=== PATIENT | female | born 1955 | race Caucasian/White ===

== ENCOUNTER → 2016-05-15 | Outpatient (CLI) | payer OTHER ==
[~2016-05-15] MED LIST: ALEV220T26 PO; AMIT25TA PO; BUPR1TAB52 PO; CAPS0.1C2 TOP; CODE30TA3 PO; CYCL10TA PO; EMLA2.5C TOP; GABA300C3 PO; IBUP80TA PO; LEVO75TA4 PO; LIPI10TA PO; MECL-68 PO; MIRT30TA3 PO; MOBI7.5T10 PO; VITA100072 PO; WELLTAB40 PO; flexeril
--- NOTE | 2016-05-25 01:17 | ECWPNPC ---
PATIENT NAME: LYNETTE NICHOLS : 1955 GENDER: FEMALE VISIT DATE: 05/15/2016 DISCHARGE DATE: 05/15/16 1603 VISIT LOCKED DATE TIME: PHYSICIAN: HERBERT SAMUEL RESOURCE: HERBERT SAMUEL REASON FOR APPOINTMENT 1. BACK HISTORY OF PRESENT ILLNESS HISTORY OF PRESENT ILLNESS: HERE FOR F/U AND MANAGEMENT OF CHRONIC LBP AND NECK PAIN.REPORTS TWO FALL INJURIES SINCE LAST VISIT IN FEBRUARY.REPORTS INCREASE IN PAIN AFTER FALL MAINLY IN LOW BACK. RATING PAIN VAS 9/10.DESCRIBES PAIN CONSTANT BURNING AND SHARP.DENIES RADICULAR SYMPTOMS. PAIN THE PATIENT DESCRIBES THE PAIN... FALL RISK SCREENING: SCREENING :NO FALLS IN THE PAST YEAR CURRENT MEDICATIONS TAKING VITAMIN B12 100 MCG TABLET SUBLINGUALLY DAILY TAKING LIPITOR 10 MG TABLET 1 TABLET ORALLY ONCE A DAY TAKING CAPSAICIN 0.1 % CREAM 1 APPLICATION TO AFFECTED AREA NEEDED EXTERNALLY FOUR TIMES A DAY NEEDED TAKING CYCLOBENZAPRINE HCL 10 MG TABLET 1 TABLET ORALLY THREE TIMES A DAY NEEDED TAKING LEVOTHYROXINE SODIUM 75 MCG TABLET 1 TABLET ORALLY ONCE A DAY TAKING GABAPENTIN 600 MG TABLET 1 CAPSULE ORALLY DAILY AT BEDTIME TAKING VITAMIN D (ERGOCALCIFEROL) 5000 CAPSULE 1 CAPSULE ORALLY ONCE A DAY TAKING CETIRIZINE HCL 10 MG TABLET 1 TABLET ORALLY ONCE A DAY TAKING MONTELUKAST SODIUM 10 MG TABLET 1 TABLET IN THE EVENING ORALLY ONCE A DAY TAKING PAXIL 20 MG TABLET 1 TABLET IN THE MORNING ORALLY ONCE A DAY TAKING WELLBUTRIN SR 150 MG TABLET EXTENDED RELEASE 12 HOUR 1 TABLET ORALLY ONCE A DAY TAKING ZOLPIDEM TARTRATE 10 MG TABLET 1 TABLET AT BEDTIME NEEDED ORALLY ONCE A DAY TAKING DIVALPROEX SODIUM 250 MG TABLET DELAYED RELEASE ORALLY DAILY AT BEDTIME TAKING IPRATROPIUM BROMIDE 0.02 % SOLUTION INHALATION THREE TIMES A DAY TAKING RANITIDINE HCL 150 MG CAPSULE 2 CAPSULE AT BEDTIME ORALLY TWICE A DAY A DAY NOT-TAKING AMITRIPTYLINE HCL 50 MG TABLET 1 TABLET ORALLY ONCE A DAY AT BEDTIME NOT-TAKING MELOXICAM 7.5 MG TABLET 1 TABLET ORALLY ONCE DAILY, NOTES: NOT TAKING VERY OFTEN NOT-TAKING VALIUM 5 MG TABLET 1 ORALLY 1 TAB 1 HR PRE PROCEDURE MEDICATION LIST REVIEWED AND RECONCILED WITH THE PATIENT PAST MEDICAL HISTORY DIZZINESS HEARING LOSS ALLERGIES MORPHINE SULFATE: HIVES: ALLERGY SPIDER BITES: RASH: ALLERGY SOCIAL HISTORY GENERAL: TOBACCO USE ARE YOU A:CURRENT SMOKER LEARNING BARRIERS / SPECIAL NEEDS ORIENTED TO PLAN OF CARE: PATIENT, PAIN MANAGEMENT PATIENT, ORIENTED TO PLAN OF CARE: PATIENT, PAIN MANAGEMENT PATIENT. NEW PATIENT PAIN DIARY TODAY'S VISITNOTES FROM 0-10, WHAT LEVEL IS YOUR PAIN TODAY?0 PAIN CLINIC PFS, CLERGY, PUBLIC HEALTH REFERRALS PFS REFERRAL NEEDED?NO CLERGY REFERRAL NEEDED?NO PUBLIC HEALTH REFERRAL NEEDED?NO WAS THE PROVIDER NOTIFIED OF ANY PERTINENT INFO?NO PFS REFERRAL NEEDED?NO CLERGY REFERRAL NEEDED?NO PUBLIC HEALTH REFERRAL NEEDED?NO WAS THE PROVIDER NOTIFIED OF ANY PERTINENT INFO?NO REVIEW OF SYSTEMS CONSTITUTIONAL: ANY CHANGE IN YOUR MEDICAL CONDITION? NO . CHILLS NO . FEVER NO . INFECTION: DO YOU HAVE NEW INFECTIONS? NO . DO YOU HAVE HISTORY OF MRSA? NO . MUSCULOSKELETAL: ANY NEW PATTERNS OF PAIN OR NUMBNESS? NO . GASTROENTEROLOGY: ANY NEW CHANGE IN BOWEL CONTROL? NO . GENITOURINARY: ANY NEW CHANGE IN BLADDER CONTROL? NO . IS THERE A CHANCE YOU COULD BE ? NO . HEMATOLOGY/LYMPH: DO YOU TAKE ANY BLOOD THINNERS? (FOR EXAMPLE- COUMADIN, PLAVIX, AGGRENOX, PLATEL, PRADAXA, OR XARELTO) NO . WHEN WAS YOUR LAST DOSE? DATE: TIME: . NEUROLOGY: HAVE YOU FALLEN IN THE PAST 6 MONTHS? YES TWICE SINCE WE LAST SAW . ANY NEW EXTREMITY NUMBNESS OR WEAKNESS? NO . CARDIOLOGY: DO YOU HAVE A PACEMAKER OR DEFIBRILLATOR? NO . RESPIRATORY: HAVE YOU BEEN SICK IN THE PAST WEEK? NO . FEVER NO . FLU LIKE SYMPTOMS? NO . COUGH NO . INTEGUMENTARY: DO YOU HAVE ANY RASHES OR OPEN SORES? NO . ALLERGIC/IMMUNO: ARE YOU ALLERGIC TO SHELLFISH OR IV DYE? NO . ANY NEW ALLERGIES? NO . PSYCHIATRIC: DO YOU HAVE THOUGHTS OF HURTING YOURSELF OR SOMEONE ELSE? NO . ARE YOU ABUSED, NEGLECTED, OR IN AN UNSAFE ENVIRONMENT? NO . ENDOCRINOLOGY: ARE YOU DIABETIC? NO . OTHER: DO YOU NEED ANY PRESCRIPTIONS? NO . IF YES, PLEASE LIST: ____ . ANY NEW PROBLEMS WITH YOUR MEDICATIONS? NO . WHEN DID YOU LAST EAT? ____ . WHEN DID YOU LAST DRINK? ____ . WHAT DID YOU LAST DRINK? ____ . NAME OF PERSON DRIVING YOU HOME? ____ . DO YOU HAVE ANY OTHER QUESTIONS OR CONCERNS NO . REVIEWED BY: PROVIDER: HERBERT COHEN . VITAL SIGNS WT 184.4 LBS, HT 65 IN, BMI 30.68 INDEX, BP 121/71 MM HG, HR 93 /MIN, RR 16 /MIN, TEMP 97.9 F, OXYGEN SAT % 98, NA INITIALS TL 1506, REVIEWED BY: KG. EXAMINATION GENERAL EXAMINATION: LUNGS:LUNG SOUNDS ARE CLEAR. HEART:HEART RATE REGULAR. MUSCULOSKELETAL:*, MUSCLE STRENGTH TESTING 5/5 BILATERAL, PALPATION: POSITIVE FOR PAIN OVER L/S SPINE. POSITIVE FOR PAIN OVER L/S PARSPINALS. ASSESSMENTS SACROILIITIS, NOT ELSEWHERE CLASSIFIED - M46.1 (PRIMARY) LOW BACK PAIN - M54.5 MYOFASCIAL PAIN - M79.1 TREATMENT SACROILIITIS, NOT ELSEWHERE CLASSIFIED REFERRAL TO:PHYSICAL THERAPY INNOVATIVEPHYSICAL THERAPIST REASON:LUMBAR MYALGIA S/P FALL INJURY PROCEDURE CODES FA211 ESTABILISHED PATIENT [facility] CHARGE FOLLOW UP 4 WEEKS (REASON: PT 2XWK X 8WK-MYOFASCIAL RELEASE) ELECTRONICALLY SIGNED BY NOEL DRAKE ON 05/23/2016 AT 10:20 AM EST DISCLAIMER : THIS IS A VISIT SUMMARY EXTRACTED FROM THE [employer] CHART. IT IS NOT A COPY OF THE [employer] PROGRESS NOTE. JAYNA
== END ==
LOC: M PAIN 15:00
PROVIDERS: ATTEND Nurse Practitioner Family
DX: Z09 Encounter for follow-up examination after completed treatment for conditions other than malignant neoplasm (principal); G89.29 Other chronic pain; M46.1 Sacroiliitis, not elsewhere classified; M54.5 Low back pain; M79.1 Myalgia; H90.5 Unspecified sensorineural hearing loss; Z86.69 Personal history of other diseases of the nervous system and sense organs; F17.200 Nicotine dependence, unspecified, uncomplicated; Z88.5 Allergy status to narcotic agent; Z91.038 Other insect allergy status; Z79.899 Other long term (current) drug therapy

== ENCOUNTER → 2016-06-30 | Outpatient (CLI) | payer OTHER ==
--- NOTE | 2016-06-30 11:19 | REP ---
CHEST: Two views. COMPARISON: 01/19/2015 There is no evidence of acute infiltrate. No pleural effusion is seen. The heart is normal in size. The mediastinal silhouette is unremarkable. The visualized osseous structures are intact. There are mild degenerative changes of the spine. IMPRESSION: No acute pulmonary disease. Signed by Jamal Brody MD 06/30/2016 08:30 P
--- NOTE | 2016-06-30 20:17 | ECGEPIP ---
Stationary ECG Study [facility] Test Date: 2016-06-30 Pat Name: LYNETTE NICHOLS Department: Room: - Gender: F [employer]r: : 1955 Requested By: Thea Kaur Order Number: [id number] Reading MD: Lawson Levin Measurements Intervals [place]yer Rate: 87 P: 55 MN: 205 QRS: 38 QRSD: 94 T: 52 QT: 383 QTc: 462 Interpretive Statements SINUS RHYTHM Borderline QTc Compared to prior tracing of 01-19-15 Electronically Signed On 06-30-2016 20:17:43 EST by Lawson Levin
== END ==
LOC: M EKG 08:30
PROVIDERS: ATTEND Nurse Practitioner Adult Health
DX: Z01.812 Encounter for preprocedural laboratory examination (principal); Z82.49 Family history of ischemic heart disease and other diseases of the circulatory system; J44.9 Chronic obstructive pulmonary disease, unspecified; D16.4 Benign neoplasm of bones of skull and face

== ENCOUNTER → 2017-03-02 | Outpatient (CLI) | payer MEDICARE, OTHER ==
[~2017-03-02] MED LIST changes: +GABA-282 PO; -GABA300C3 PO; +MOBI4TAB PO; -MOBI7.5T10 PO
--- NOTE | 2017-03-20 02:32 | ECWPNPC ---
PATIENT NAME: LYNETTE NICHOLS : 1955 GENDER: FEMALE VISIT DATE: 03/02/2017 DISCHARGE DATE: 03/02/17 1521 VISIT LOCKED DATE TIME: PHYSICIAN: HERBERT SAMUEL RESOURCE: HERBERT SAMUEL REASON FOR APPOINTMENT 1. BACK, HASNT BEEN HERE SINCE 04/2016 HISTORY OF PRESENT ILLNESS HISTORY OF PRESENT ILLNESS: HERE FOR F/U,LAST VISIT APRIL 2016.STATES PAIN ACROSS LOW BACK AND HIPS HAS RETURNED.RATING PAIN VAS 9/10.HAVING DIFFICULTY WALKING DUE TO PAIN.DENIES RECENT FEVER,ILLNESS OR WEIGHT LOSS.DENIES BOWEL OR BLADDER INCONTINENCE.PAIN IS AGGREVATED BY INCREASED ACTIVITY AND RELIEVED AT REST. PAIN THE PATIENT DESCRIBES THE PAIN... FALL RISK SCREENING: SCREENING :NO FALLS IN THE PAST YEAR CURRENT MEDICATIONS TAKING VITAMIN B12 100 MCG TABLET SUBLINGUALLY DAILY TAKING LIPITOR 10 MG TABLET 1 TABLET ORALLY ONCE A DAY TAKING CAPSAICIN 0.1 % CREAM 1 APPLICATION TO AFFECTED AREA NEEDED EXTERNALLY FOUR TIMES A DAY NEEDED TAKING CYCLOBENZAPRINE HCL 10 MG TABLET 1 TABLET ORALLY THREE TIMES A DAY NEEDED TAKING LEVOTHYROXINE SODIUM 75 MCG TABLET 1 TABLET ORALLY ONCE A DAY TAKING GABAPENTIN 600 MG TABLET 1 CAPSULE ORALLY DAILY AT BEDTIME TAKING VITAMIN D (ERGOCALCIFEROL) 5000 CAPSULE 1 CAPSULE ORALLY ONCE A DAY TAKING CETIRIZINE HCL 10 MG TABLET 1 TABLET ORALLY ONCE A DAY TAKING MONTELUKAST SODIUM 10 MG TABLET 1 TABLET IN THE EVENING ORALLY ONCE A DAY TAKING PAXIL 20 MG TABLET 1 TABLET IN THE MORNING ORALLY ONCE A DAY TAKING WELLBUTRIN SR 150 MG TABLET EXTENDED RELEASE 12 HOUR 1 TABLET ORALLY ONCE A DAY TAKING ZOLPIDEM TARTRATE 10 MG TABLET 1 TABLET AT BEDTIME NEEDED ORALLY ONCE A DAY TAKING DIVALPROEX SODIUM 500 MG TABLET DELAYED RELEASE ORALLY BID TAKING IPRATROPIUM BROMIDE 0.02 % SOLUTION INHALATION THREE TIMES A DAY TAKING RANITIDINE HCL 150 MG CAPSULE 2 CAPSULE AT BEDTIME ORALLY TWICE A DAY A DAY TAKING AMITRIPTYLINE HCL 50 MG TABLET 1 TABLET ORALLY ONCE A DAY AT BEDTIME UNKNOWN MELOXICAM 7.5 MG TABLET 1 TABLET ORALLY ONCE DAILY, NOTES: NOT TAKING VERY OFTEN UNKNOWN VALIUM 5 MG TABLET 1 ORALLY 1 TAB 1 HR PRE PROCEDURE MEDICATION LIST REVIEWED AND RECONCILED WITH THE PATIENT PAST MEDICAL HISTORY DIZZINESS HEARING LOSS ALLERGIES MORPHINE SULFATE: HIVES: ALLERGY SPIDER BITES: RASH: ALLERGY SURGICAL HISTORY RIGHT ELBOW ULNAR NERVE DISPOSITION 01/2015 SOCIAL HISTORY GENERAL: TOBACCO USE ARE YOU A:CURRENT SMOKER ARE YOU INTERESTED IN QUITTING?THINKING ABOUT QUITTING COUNSELED THE PATIENT ON SMOKING CESSATION, EDUCATION [id number]/12/2016 PATIENT COUNSELED ON THE DANGERS OF TOBACCO USE AND URGED TO QUIT:03/02/2017 PT IS NOT READY TO QUIT SMOKING AT THIS TIME LEARNING BARRIERS / SPECIAL NEEDS VISION IMPAIRED?YES :CORRECTIVE LENSES PAIN CLINIC PFS, CLERGY, PUBLIC HEALTH REFERRALS PFS REFERRAL NEEDED?NO CLERGY REFERRAL NEEDED?NO PUBLIC HEALTH REFERRAL NEEDED?NO WAS THE PROVIDER NOTIFIED OF ANY PERTINENT INFO?NO HAS THE PATIENT BEEN EDUCATED REGARDING HIS/HER PLAN OF CARE?YES HAS THE PATIENT BEEN EDUCATED REGARDING PAIN, THE RISK FOR PAIN, THE IMPORTANCE OF EFFECTIVE PAIN MANAGEMENT, AND THE PAIN ASSESSMENT PROCESS?YES HOSPITALIZATION/MAJOR DIAGNOSTIC PROCEDURE SURGERY REVIEW OF SYSTEMS REVIEWED BY: PROVIDER: HERBERT COHEN . CONSTITUTIONAL: ANY CHANGE IN YOUR MEDICAL CONDITION? NO . CHILLS NO . FEVER NO . INFECTION: DO YOU HAVE NEW INFECTIONS? NO . DO YOU HAVE HISTORY OF MRSA? NO . MUSCULOSKELETAL: ANY NEW PATTERNS OF PAIN OR NUMBNESS? NO . GASTROENTEROLOGY: ANY NEW CHANGE IN BOWEL CONTROL? NO . GENITOURINARY: ANY NEW CHANGE IN BLADDER CONTROL? NO . IS THERE A CHANCE YOU COULD BE ? NO . HEMATOLOGY/LYMPH: DO YOU TAKE ANY BLOOD THINNERS? (FOR EXAMPLE- COUMADIN, PLAVIX, AGGRENOX, PLATEL, PRADAXA, OR XARELTO) NO . WHEN WAS YOUR LAST DOSE? DATE: TIME: . NEUROLOGY: HAVE YOU FALLEN IN THE PAST 6 MONTHS? YES, FELL IN OCTOBER AND HURT HER LEFT SHOULDER / HAD XRAY YESTERDAY AND WILL BE STARTING THERAPY IN THE NEAR FUTURE. . ANY NEW EXTREMITY NUMBNESS OR WEAKNESS? NO . CARDIOLOGY: DO YOU HAVE A PACEMAKER OR DEFIBRILLATOR? NO . RESPIRATORY: HAVE YOU BEEN SICK IN THE PAST WEEK? NO . FEVER NO . FLU LIKE SYMPTOMS? NO . COUGH NO . INTEGUMENTARY: DO YOU HAVE ANY RASHES OR OPEN SORES? NO . ALLERGIC/IMMUNO: ARE YOU ALLERGIC TO SHELLFISH OR IV DYE? NO . ANY NEW ALLERGIES? NO . PSYCHIATRIC: DO YOU HAVE THOUGHTS OF HURTING YOURSELF OR SOMEONE ELSE? NO . ARE YOU ABUSED, NEGLECTED, OR IN AN UNSAFE ENVIRONMENT? NO . ENDOCRINOLOGY: ARE YOU DIABETIC? NO . OTHER: DO YOU NEED ANY PRESCRIPTIONS? NO . IF YES, PLEASE LIST: ____ . ANY NEW PROBLEMS WITH YOUR MEDICATIONS? NO . WHEN DID YOU LAST EAT? ____ . WHEN DID YOU LAST DRINK? ____ . WHAT DID YOU LAST DRINK? ____ . NAME OF PERSON DRIVING YOU HOME? ____ . DO YOU HAVE ANY OTHER QUESTIONS OR CONCERNS NO . VITAL SIGNS WT 205.6 LBS, HT 65 IN, BMI 34.21 INDEX, BP 121/76 MM HG, HR 93 /MIN, RR 16 /MIN, TEMP 97.5 F, OXYGEN SAT % 98%, NA INITIALS SC 14:35, REVIEWED BY: NL. EXAMINATION GENERAL EXAMINATION: LUNGS:LUNG SOUNDS ARE CLEAR. HEART:HEART RATE REGULAR. MUSCULOSKELETAL:*, MUSCLE STRENGTH TESTING 5/5 BILATERAL, PALPATION: POSITIVE FOR PAIN OVER L/S SPINE. POSITIVE FOR PAIN OVER L/S PARSPINALS. 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 PREVENTIVE MEDICINE REVIEWED PRE PROCEDURE AND LUMBAR FACET INFO WITH PT EXPRESSING UNDERSTANDING OF ALL. PROCEDURE CODES FA211 ESTABILISHED PATIENT [facility] FACILITY CHARGE G8730 PAIN ASSESS POS TOOL F/U PLAN DOC G8427 DOC MEDS VERIFIED W/PT OR RE DISPOSITION & COMMUNICATION FOLLOW UP 2WK POST (REASON: L4/5-L5/S1 BILAT.LUMBAR FACET) ELECTRONICALLY SIGNED BY NOEL DRAKE ON 03/19/2017 AT 12:45 PM EST DISCLAIMER : THIS IS A VISIT SUMMARY EXTRACTED FROM THE [employer] CHART. IT IS NOT A COPY OF THE [employer] PROGRESS NOTE. MTDD
== END | disposition home or self-care (01) ==
LOC: M PAIN 14:45
PROVIDERS: ATTEND Nurse Practitioner Family
DX: G89.29 Other chronic pain (principal); M48.061 Spinal stenosis, lumbar region without neurogenic claudication; M43.07 Spondylolysis, lumbosacral region; H91.90 Unspecified hearing loss, unspecified ear; Z79.899 Other long term (current) drug therapy; Z88.2 Allergy status to sulfonamides; Z88.5 Allergy status to narcotic agent; Z91.038 Other insect allergy status

== ENCOUNTER → 2017-03-15 | Outpatient (CLI) | payer MEDICARE, OTHER ==
[~2017-03-15] MED LIST changes: +BUPIVACAINE HCL 0.25% 30 ML VIAL As Ordered ONE; +ISOVUE-M 300 61% 15ML VIAL (Q9967) As Ordered ONE; +LIDOCAINE 1% SDV INJ 30 ML VIAL As Ordered ONE; +TRIAMCINOLONE ACETONIDE SUSP 40 MG/ML VIAL (J3301) As Ordered ONE; +diazePAM 5 MG TAB As Ordered ONE; +oxyCODONE 5MG TAB As Ordered ONE
--- NOTE | 2017-03-16 15:55 | REP ---
FACET BLOCK: The images were reviewed with Dr. Brody. The patient has a history of low back pain. The portable C-Arm was provided in the OR for Dr. Ramírez for fluoroscopic guidance. Four intraoperative last image hold fluoro spot films were obtained for needle placement verification for bilateral lumbar facet injection. The films are on the PACs system and are available for review. 19 seconds of fluoroscopy time was utilized for this procedure. Reviewed by WILLIAM Joy 03/16/2017 04:34 PEdited and Signed by Jamal Brody MD 03/16/2017 08:11 P
--- NOTE | 2017-03-27 01:31 | ECWPNPC ---
PATIENT NAME: LYNETTE NICHOLS : 1955 GENDER: FEMALE VISIT DATE: 03/15/2017 DISCHARGE DATE: 03/15/17 1054 VISIT LOCKED DATE TIME: PHYSICIAN: JOLANTA PAINTER RESOURCE: JOLANTA PAINTER REASON FOR APPOINTMENT 1. BILAT.LUMBAR FACET HISTORY OF PRESENT ILLNESS HISTORY OF PRESENT ILLNESS: PAIN THE PATIENT DESCRIBES THE PAIN... FALL RISK SCREENING: SCREENING :NO FALLS IN THE PAST YEAR CURRENT MEDICATIONS TAKING VITAMIN B12 100 MCG TABLET SUBLINGUALLY DAILY, NOTES: 03/14/17 08 TAKING LIPITOR 10 MG TABLET 1 TABLET ORALLY ONCE A DAY, NOTES: 03/14/171999 TAKING CAPSAICIN 0.1 % CREAM 1 APPLICATION TO AFFECTED AREA NEEDED EXTERNALLY FOUR TIMES A DAY NEEDED, NOTES: 6 MONTHS TAKING CYCLOBENZAPRINE HCL 10 MG TABLET 1 TABLET ORALLY THREE TIMES A DAY NEEDED, NOTES: 03/14/171999 TAKING LEVOTHYROXINE SODIUM 75 MCG TABLET 1 TABLET ORALLY ONCE A DAY, NOTES: 03/14/17799 TAKING GABAPENTIN 600 MG TABLET 1 CAPSULE ORALLY DAILY AT BEDTIME, NOTES: 03/14/171999 TAKING VITAMIN D (ERGOCALCIFEROL) 5000 CAPSULE 1 CAPSULE ORALLY ONCE A DAY, NOTES: 03/14/17 08 TAKING CETIRIZINE HCL 10 MG TABLET 1 TABLET ORALLY ONCE A DAY, NOTES: 03/14/17 08 TAKING MONTELUKAST SODIUM 10 MG TABLET 1 TABLET IN THE EVENING ORALLY ONCE A DAY, NOTES: 03/14/171999 TAKING PAXIL 20 MG TABLET 1 TABLET IN THE MORNING ORALLY ONCE A DAY, NOTES: 03/14/17 1400 TAKING WELLBUTRIN SR 150 MG TABLET EXTENDED RELEASE 12 HOUR 1 TABLET ORALLY ONCE A DAY, NOTES: 03/14/17 1400 TAKING ZOLPIDEM TARTRATE 10 MG TABLET 1 TABLET AT BEDTIME NEEDED ORALLY ONCE A DAY, NOTES: 03/14/17 2200 TAKING DIVALPROEX SODIUM 500 MG TABLET DELAYED RELEASE ORALLY BID, NOTES: 03/14/171999 TAKING IPRATROPIUM BROMIDE 0.02 % SOLUTION INHALATION THREE TIMES A DAY, NOTES: > 1 MONTH TAKING RANITIDINE HCL 150 MG CAPSULE 2 CAPSULE AT BEDTIME ORALLY TWICE A DAY A DAY, NOTES: 03/14/171999 TAKING AMITRIPTYLINE HCL 50 MG TABLET 1 TABLET ORALLY ONCE A DAY AT BEDTIME, NOTES: 03/14/17 NOT-TAKING MELOXICAM 7.5 MG TABLET 1 TABLET ORALLY ONCE DAILY, NOTES: NOT TAKING VERY OFTEN NOT-TAKING VALIUM 5 MG TABLET 1 ORALLY 1 TAB 1 HR PRE PROCEDURE MEDICATION LIST REVIEWED AND RECONCILED WITH THE PATIENT PAST MEDICAL HISTORY DIZZINESS HEARING LOSS ALLERGIES MORPHINE SULFATE: HIVES: ALLERGY SPIDER BITES: RASH: ALLERGY REVIEW OF SYSTEMS REVIEWED BY: PROVIDER: . CONSTITUTIONAL: ANY CHANGE IN YOUR MEDICAL CONDITION? NO . CHILLS NO . FEVER NO . INFECTION: DO YOU HAVE NEW INFECTIONS? NO . DO YOU HAVE HISTORY OF MRSA? NO . MUSCULOSKELETAL: ANY NEW PATTERNS OF PAIN OR NUMBNESS? NO . GASTROENTEROLOGY: ANY NEW CHANGE IN BOWEL CONTROL? NO . GENITOURINARY: ANY NEW CHANGE IN BLADDER CONTROL? NO . IS THERE A CHANCE YOU COULD BE ? NO . HEMATOLOGY/LYMPH: DO YOU TAKE ANY BLOOD THINNERS? (FOR EXAMPLE- COUMADIN, PLAVIX, AGGRENOX, PLATEL, PRADAXA, OR XARELTO) NO . WHEN WAS YOUR LAST DOSE? DATE: TIME: . NEUROLOGY: HAVE YOU FALLEN IN THE PAST 6 MONTHS? YES PT REPORTS A MISSTEP GOING UP THE STEPS, AND FELL. THIS HAPPENED IN OCTOBER. . ANY NEW EXTREMITY NUMBNESS OR WEAKNESS? NO . CARDIOLOGY: DO YOU HAVE A PACEMAKER OR DEFIBRILLATOR? NO . RESPIRATORY: HAVE YOU BEEN SICK IN THE PAST WEEK? NO . FEVER NO . FLU LIKE SYMPTOMS? NO . COUGH NO . INTEGUMENTARY: DO YOU HAVE ANY RASHES OR OPEN SORES? NO . ALLERGIC/IMMUNO: ARE YOU ALLERGIC TO SHELLFISH OR IV DYE? NO . ANY NEW ALLERGIES? NO . PSYCHIATRIC: DO YOU HAVE THOUGHTS OF HURTING YOURSELF OR SOMEONE ELSE? NO . ARE YOU ABUSED, NEGLECTED, OR IN AN UNSAFE ENVIRONMENT? NO . ENDOCRINOLOGY: ARE YOU DIABETIC? NO . OTHER: DO YOU NEED ANY PRESCRIPTIONS? NO . IF YES, PLEASE LIST: ____ . ANY NEW PROBLEMS WITH YOUR MEDICATIONS? NO . WHEN DID YOU LAST EAT? ____03/14/17 1900 . WHEN DID YOU LAST DRINK? ____03/15/17 0200 . WHAT DID YOU LAST DRINK? ____TEA . NAME OF PERSON DRIVING YOU HOME? ____AMBER . DO YOU HAVE ANY OTHER QUESTIONS OR CONCERNS NO . VITAL SIGNS WT 200.0 LBS, HT 65 IN, BMI 33.28 INDEX, BP 144/61 MM HG, HR 89 /MIN, RR 18 /MIN, TEMP 97.0 F, OXYGEN SAT % 98%, SAFE IN ENV? (Y/N) YES, NA INITIALS TL 0921, REVIEWED BY: KAIA. 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 JOLANTA PAINTER RN PLASTICS NONE ANESTHESIA LOCAL PRE PROCEDURE NOTE THE PATIENT HAS A HISTORY OF CHRONIC LOW BACK PAIN. I EVALUATE THE PATIENT AND REVIEWED THE CHART. I WENT OVER THE RISKS, ALTERNATIVES, AND BENEFITS ASSOCIATED WITH THIS PROCEDURE. THE PATIENT WOULD LIKE TO PROCEED AND GIVE CONSENT TO PERFORMED THE PROCEDURE. THE PATIENT DENIES UNEXPLAINABLE WEIGHT LOSS, FEVER, CHILLS, OR NEW CHANGES IN URINARY OR BOWEL CONTROL DESCRIPTION OF PROCEDURE THE PATIENT WAS BROUGHT TO THE PROCEDURE ROOM AND PLACED IN THE PRONE POSITION. THE LUMBOSACRAL AREA WAS CLEANED WITH CHLORAPREP SOLUTION AND DRAPED ASEPTICALLY. THE PROCEDURE WAS DONE UNDER STERILE CONDITIONS. I CHECKED LATERALITY AND THE LEVEL WHERE THE PROCEDURE WAS GOING TO BE PERFORMED WITH THE PATIENT AND THE SUPPORTING STAFF AT THE MOMENT OF THE TIME OUT IN THE PROCEDURE ROOM. UNDER FLUOROSCOPIC GUIDANCE, THE TARGET POINT WAS SELECTED AT THE RIGHT AND LEFT L4-L5 AND RIGHT AND LEFT L5-S1 FACET JOINT. TARGET POINT WAS SELECTED AFTER LATERAL ROTATION AND TILT OF THE MAGNIFIER OF THE C-ARM. LIDOCAINE 0.5% WAS USED TO NUMB THE SKIN AND THE SUBCUTANEOUS TISSUE BELOW IT. SPINAL NEEDLES, 22-GAUGE, WERE ADVANCED UNDER FLUOROSCOPIC GUIDANCE AND FOLLOWING PATIENT FEEDBACK UNTIL THE TARGETS WERE TOUCHED. THE POSITION OF THE NEEDLES WAS VERIFIED WITH AP AND LATERAL VIEWS. AFTER PROPER POSITION OF THE NEEDLES WAS ACHIEVED, ISOVUE-M DYE 30% 0.1 ML WAS INJECTED SHOWING ADEQUATE SPREAD OF THE DYE. THEN A SOLUTION OF 1.9 ML OF BUPIVACAINE 0.125% OF KENALOG 10 MG WAS INJECTED AT EACH SITE. THERE WAS NO EVIDENCE OF BLOOD, PARESTHESIA OR CEREBROSPINAL FLUID DURING THE PROCEDURE. THE PATIENT WAS SENT TO THE RECOVERY ROOM. THE PATIENT WAS MOVING THE EXTREMITIES AND DOING WELL. THERE WAS NO COMPLICATION DURING THE PROCEDURE. FLUOROSCOPY TIME WAS 31 SECONDS POST PROCEDURE NOTE THE PATIENT WILL BE SEEN IN A FOLLOW UP IN THE NEXT FEW WEEKS. INSTRUCTIONS WERE GIVEN, QUESTIONS WERE ANSWERED, AND THE PATIENT EXPRESSED UNDERSTANDING AND AGREES WITH THE PLAN. I, WEN ELLIS, DOCUMENTED THE ABOVE INFORMATION ACTING A SCRIBE FOR DR. PAINTER. I, DR. PAINTER, HAVE REVIEWED THE ABOVE DOCUMENT, SCRIBED BY WEN ELLIS, AND I VERIFY THAT IT IS ACCURATE DIAGNOSTIC IMAGING [facility] FACET BLOCK (PAIN)[id number] PROCEDURE CODES 11956 INJ PARAVERT F JNT L/S 1 LEV, MODIFIERS: 50 14705 INJ PARAVERT F JNT L/S 2 LEV, MODIFIERS: 50 [id number] RADXPS IN END [id number] PXD DISPOSITION & COMMUNICATION FOLLOW UP 3 WEEKS ELECTRONICALLY SIGNED BY JOLANTA PAINTER MD ON 03/26/2017 AT 02:30 PM EST DISCLAIMER : THIS IS A VISIT SUMMARY EXTRACTED FROM THE [employer] CHART. IT IS NOT A COPY OF THE [employer] PROGRESS NOTE. MTDD
== END ==
LOC: M PAIN 09:15
PROVIDERS: ATTEND Anesthesiology
DX: G89.29 Other chronic pain (principal); M47.16 Other spondylosis with myelopathy, lumbar region; M47.817 Spondylosis without myelopathy or radiculopathy, lumbosacral region; Z88.5 Allergy status to narcotic agent; Z91.038 Other insect allergy status; Z79.899 Other long term (current) drug therapy
CPT/HCPCS: 64493; 64494; J3301; Q9967

== ENCOUNTER → 2017-03-29 | Outpatient (CLI) | payer MEDICARE, OTHER ==
[~2017-03-29] MED LIST changes: -BUPIVACAINE HCL 0.25% 30 ML VIAL As Ordered ONE; -ISOVUE-M 300 61% 15ML VIAL (Q9967) As Ordered ONE; -LIDOCAINE 1% SDV INJ 30 ML VIAL As Ordered ONE; -TRIAMCINOLONE ACETONIDE SUSP 40 MG/ML VIAL (J3301) As Ordered ONE; -diazePAM 5 MG TAB As Ordered ONE; -oxyCODONE 5MG TAB As Ordered ONE
--- NOTE | 2017-04-17 01:40 | ECWPNPC ---
PATIENT NAME: LYNETTE NICHOLS : 1955 GENDER: FEMALE VISIT DATE: 03/29/2017 DISCHARGE DATE: 03/29/17 1506 VISIT LOCKED DATE TIME: PHYSICIAN: HERBERT SAMUEL RESOURCE: HERBERT SAMUEL REASON FOR APPOINTMENT 1. POST PROCEDURE HISTORY OF PRESENT ILLNESS HISTORY OF PRESENT ILLNESS: HERE FOR POST PROCEDUR F/U.HAD BILAT. L4/5-L5/S1 ON 03-15-17.REPORTS >50% IMPROVEMENT THAT CONTINUES TODAY.PAIN IS OVER LOW BACK L>R.AGGREVATED WITH WALKING OR STANDING AND RELIEVED AT REST.RATING PAIN VAS 0-2/10. PAIN THE PATIENT DESCRIBES THE PAIN... FALL RISK SCREENING: SCREENING :NO FALLS IN THE PAST YEAR CURRENT MEDICATIONS TAKING VITAMIN B12 100 MCG TABLET SUBLINGUALLY DAILY, NOTES: 03/14/17 08 TAKING LIPITOR 10 MG TABLET 1 TABLET ORALLY ONCE A DAY, NOTES: 03/14/171999 TAKING CAPSAICIN 0.1 % CREAM 1 APPLICATION TO AFFECTED AREA NEEDED EXTERNALLY FOUR TIMES A DAY NEEDED, NOTES: 6 MONTHS TAKING CYCLOBENZAPRINE HCL 10 MG TABLET 1 TABLET ORALLY THREE TIMES A DAY NEEDED, NOTES: 03/14/171999 TAKING LEVOTHYROXINE SODIUM 75 MCG TABLET 1 TABLET ORALLY ONCE A DAY, NOTES: 03/14/17 08 TAKING GABAPENTIN 600 MG TABLET 1 CAPSULE ORALLY DAILY AT BEDTIME, NOTES: 03/14/171999 TAKING VITAMIN D (ERGOCALCIFEROL) 5000 CAPSULE 1 CAPSULE ORALLY ONCE A DAY, NOTES: 03/14/17 08 TAKING CETIRIZINE HCL 10 MG TABLET 1 TABLET ORALLY ONCE A DAY, NOTES: 03/14/17 08 TAKING MONTELUKAST SODIUM 10 MG TABLET 1 TABLET IN THE EVENING ORALLY ONCE A DAY, NOTES: 03/14/17 2000 TAKING PAXIL 20 MG TABLET 1 TABLET IN THE MORNING ORALLY ONCE A DAY, NOTES: 03/14/17 1400 TAKING WELLBUTRIN SR 150 MG TABLET EXTENDED RELEASE 12 HOUR 1 TABLET ORALLY ONCE A DAY, NOTES: 03/14/17 1400 TAKING ZOLPIDEM TARTRATE 10 MG TABLET 1 TABLET AT BEDTIME NEEDED ORALLY ONCE A DAY, NOTES: 03/14/17 2200 TAKING DIVALPROEX SODIUM 500 MG TABLET DELAYED RELEASE ORALLY BID, NOTES: 03/14/171999 TAKING IPRATROPIUM BROMIDE 0.02 % SOLUTION INHALATION THREE TIMES A DAY, NOTES: > 1 MONTH TAKING RANITIDINE HCL 150 MG CAPSULE 2 CAPSULE AT BEDTIME ORALLY TWICE A DAY A DAY, NOTES: 03/14/171999 TAKING AMITRIPTYLINE HCL 50 MG TABLET 1 TABLET ORALLY ONCE A DAY AT BEDTIME, NOTES: 03/14/17 DISCONTINUED MELOXICAM 7.5 MG TABLET 1 TABLET ORALLY ONCE DAILY, NOTES: NOT TAKING VERY OFTEN DISCONTINUED VALIUM 5 MG TABLET 1 ORALLY 1 TAB 1 HR PRE PROCEDURE MEDICATION LIST REVIEWED AND RECONCILED WITH THE PATIENT PAST MEDICAL HISTORY DIZZINESS HEARING LOSS ALLERGIES MORPHINE SULFATE: HIVES: ALLERGY SPIDER BITES: RASH: ALLERGY SOCIAL HISTORY GENERAL: TOBACCO USE ARE YOU A:CURRENT SMOKER ARE YOU INTERESTED IN QUITTING?THINKING ABOUT QUITTING COUNSELED THE PATIENT ON SMOKING CESSATION, EDUCATION [id number]/30/2017 PATIENT COUNSELED ON THE DANGERS OF TOBACCO USE AND URGED TO QUIT:03/29/2017 PT IS NOT READY TO QUIT SMOKING AT THIS TIME LEARNING BARRIERS / SPECIAL NEEDS VISION IMPAIRED?YES :CORRECTIVE LENSES PAIN CLINIC PFS, CLERGY, PUBLIC HEALTH REFERRALS PFS REFERRAL NEEDED?NO CLERGY REFERRAL NEEDED?NO PUBLIC HEALTH REFERRAL NEEDED?NO WAS THE PROVIDER NOTIFIED OF ANY PERTINENT INFO?NO HAS THE PATIENT BEEN EDUCATED REGARDING HIS/HER PLAN OF CARE?YES HAS THE PATIENT BEEN EDUCATED REGARDING PAIN, THE RISK FOR PAIN, THE IMPORTANCE OF EFFECTIVE PAIN MANAGEMENT, AND THE PAIN ASSESSMENT PROCESS?YES REVIEW OF SYSTEMS REVIEWED BY: PROVIDER: HERBERT COHEN . CONSTITUTIONAL: ANY CHANGE IN YOUR MEDICAL CONDITION? NO . CHILLS NO . FEVER NO . INFECTION: DO YOU HAVE NEW INFECTIONS? NO . DO YOU HAVE HISTORY OF MRSA? NO . MUSCULOSKELETAL: ANY NEW PATTERNS OF PAIN OR NUMBNESS? YES . GASTROENTEROLOGY: ANY NEW CHANGE IN BOWEL CONTROL? NO . GENITOURINARY: ANY NEW CHANGE IN BLADDER CONTROL? NO . IS THERE A CHANCE YOU COULD BE ? NO . HEMATOLOGY/LYMPH: DO YOU TAKE ANY BLOOD THINNERS? (FOR EXAMPLE- COUMADIN, PLAVIX, AGGRENOX, PLATEL, PRADAXA, OR XARELTO) NO . WHEN WAS YOUR LAST DOSE? DATE: TIME: . NEUROLOGY: HAVE YOU FALLEN IN THE PAST 6 MONTHS? NO . ANY NEW EXTREMITY NUMBNESS OR WEAKNESS? NO . CARDIOLOGY: DO YOU HAVE A PACEMAKER OR DEFIBRILLATOR? NO . RESPIRATORY: HAVE YOU BEEN SICK IN THE PAST WEEK? NO . FEVER NO . FLU LIKE SYMPTOMS? NO . COUGH NO . INTEGUMENTARY: DO YOU HAVE ANY RASHES OR OPEN SORES? NO . ALLERGIC/IMMUNO: ARE YOU ALLERGIC TO SHELLFISH OR IV DYE? NO . ANY NEW ALLERGIES? NO . PSYCHIATRIC: DO YOU HAVE THOUGHTS OF HURTING YOURSELF OR SOMEONE ELSE? NO . ARE YOU ABUSED, NEGLECTED, OR IN AN UNSAFE ENVIRONMENT? NO . ENDOCRINOLOGY: ARE YOU DIABETIC? NO . OTHER: DO YOU NEED ANY PRESCRIPTIONS? NO . IF YES, PLEASE LIST: ____ . ANY NEW PROBLEMS WITH YOUR MEDICATIONS? NO . WHEN DID YOU LAST EAT? ____ . WHEN DID YOU LAST DRINK? ____ . WHAT DID YOU LAST DRINK? ____ . NAME OF PERSON DRIVING YOU HOME? ____ . DO YOU HAVE ANY OTHER QUESTIONS OR CONCERNS YES,MY PAIN EASES WHEN I SIT DOWN . VITAL SIGNS WT 200 LBS, HT 65 IN, BMI 33.28 INDEX, BP 132/82 MM HG, HR 79 /MIN, RR 16 /MIN, TEMP 98.4 F, OXYGEN SAT % 98%, SAFE IN ENV? (Y/N) YES, NA INITIALS SC 14:41, REVIEWED BY: LEVI. EXAMINATION GENERAL EXAMINATION: LUNGS:LUNG SOUNDS ARE CLEAR. HEART:HEART RATE REGULAR. MUSCULOSKELETAL:*, MUSCLE STRENGTH TESTING 5/5 BILATERAL, PALPATION: NEGATIVE FOR PAIN OVER L/S SPINE. NEGATIVE FOR PAIN OVER L/S PARSPINALS. ASSESSMENTS DEGENERATIVE LUMBAR SPINAL STENOSIS - M48.061 (PRIMARY) LUMBOSACRAL SPONDYLOLYSIS - M43.07 TREATMENT OTHERS NOTES: PATIENT WAS ADVISED TO START A WALKING PROGRAM TO STRENGTHEN LUMBAR PARASPINAL MUSCLES AND IMPROVE MOBILITY. THEY WERE ADVISED THAT THIS WILL IMPROVE WEIGHT LOSS AND ALSO DEPRESSION/FIBROMYALGIA SYMPTOMS. ADVISED TO WALK 10 MINUTES EVERY OTHER DAY ON A FLAT SURFACE. EMPHASIZED THE IMPORTANCE OF DOING THIS CONSISTANTLY AND NOT SPORATICALLY TO AVOID INJURY. STRONG ADVISED NOT TO DO MORE THAN 10 MINUTES EVERY OTHER DSY FOR THE FIRST 4 WEEKS. PROCEDURE CODES FA211 ESTABILISHED PATIENT [facility] FACILITY CHARGE G8730 PAIN ASSESS POS TOOL F/U PLAN DOC G8427 DOC MEDS VERIFIED W/PT OR RE DISPOSITION & COMMUNICATION FOLLOW UP 6-8 WK ELECTRONICALLY SIGNED BY NOEL DRAKE ON 04/16/2017 AT 12:55 PM EST DISCLAIMER : THIS IS A VISIT SUMMARY EXTRACTED FROM THE [employer] CHART. IT IS NOT A COPY OF THE [employer] PROGRESS NOTE. JAYNA
== END ==
LOC: M PAIN 13:45
PROVIDERS: ATTEND Nurse Practitioner Family
DX: G89.29 Other chronic pain (principal); M48.061 Spinal stenosis, lumbar region without neurogenic claudication; M43.07 Spondylolysis, lumbosacral region; H91.90 Unspecified hearing loss, unspecified ear; R42 Dizziness and giddiness; F17.210 Nicotine dependence, cigarettes, uncomplicated; Z88.5 Allergy status to narcotic agent; Z91.038 Other insect allergy status; Z79.899 Other long term (current) drug therapy

== ENCOUNTER → 2017-05-14 | Outpatient (CLI) | payer MEDICARE | LOC: M PAIN 09:30 | DX: G89.29 Other chronic pain (principal); M53.3 Sacrococcygeal disorders, not elsewhere classified; M48.061 Spinal stenosis, lumbar region without neurogenic claudication; M43.07 Spondylolysis, lumbosacral region; F17.200 Nicotine dependence, unspecified, uncomplicated; Z88.5 Allergy status to narcotic agent; Z91.038 Other insect allergy status; Z79.899 Other long term (current) drug therapy | CPT/HCPCS: G0463 ==

== ENCOUNTER → 2017-05-30 | Outpatient (CLI) | payer MEDICARE ==
[~2017-05-30] MED LIST changes: -ALEV220T26 PO; -AMIT25TA PO; +BUPIVACAINE HCL 0.25% 30 ML VIAL As Ordered; -BUPR1TAB52 PO; -CAPS0.1C2 TOP; -CODE30TA3 PO; -CYCL10TA PO; -EMLA2.5C TOP; -GABA-282 PO; -IBUP80TA PO; +ISOVUE-M 300 61% 15ML VIAL (Q9967) As Ordered; -LEVO75TA4 PO; +LIDOCAINE 1% SDV INJ 30 ML VIAL As Ordered; -LIPI10TA PO; -MECL-68 PO; -MIRT30TA3 PO; -MOBI4TAB PO; +TRIAMCINOLONE ACETONIDE SUSP 40 MG/ML VIAL (J3301) As Ordered; -VITA100072 PO; -WELLTAB40 PO; +diazePAM 5 MG TAB As Ordered; -flexeril; +oxyCODONE 5MG TAB As Ordered
== END ==
LOC: M PAIN 08:45
DX: G89.29 Other chronic pain (principal); M46.1 Sacroiliitis, not elsewhere classified; M53.88 Other specified dorsopathies, sacral and sacrococcygeal region; F17.210 Nicotine dependence, cigarettes, uncomplicated; Z79.899 Other long term (current) drug therapy; Z88.5 Allergy status to narcotic agent; Z91.038 Other insect allergy status
CPT/HCPCS: J3301

== ENCOUNTER → 2017-06-20 | Outpatient (CLI) | payer MEDICARE | LOC: M PAIN 11:15 | DX: Z53.29 Procedure and treatment not carried out because of patient's decision for other reasons (principal) ==

== ENCOUNTER → 2017-07-10 | Outpatient (CLI) | payer MEDICARE | LOC: M PAIN 10:15 | DX: M53.3 Sacrococcygeal disorders, not elsewhere classified (principal); M48.061 Spinal stenosis, lumbar region without neurogenic claudication; M43.07 Spondylolysis, lumbosacral region; F17.210 Nicotine dependence, cigarettes, uncomplicated; Z79.899 Other long term (current) drug therapy; Z88.5 Allergy status to narcotic agent; Z91.038 Other insect allergy status | CPT/HCPCS: G0463 ==

== ENCOUNTER → 2017-09-13 | Outpatient (CLI) | payer MEDICARE | LOC: M PAIN 13:30 | DX: M53.3 Sacrococcygeal disorders, not elsewhere classified (principal); M48.061 Spinal stenosis, lumbar region without neurogenic claudication; M43.07 Spondylolysis, lumbosacral region; G89.29 Other chronic pain; F17.200 Nicotine dependence, unspecified, uncomplicated; Z79.899 Other long term (current) drug therapy; Z88.5 Allergy status to narcotic agent; Z91.038 Other insect allergy status; Z86.69 Personal history of other diseases of the nervous system and sense organs | CPT/HCPCS: G0463 ==

== ENCOUNTER → 2017-10-01 | Outpatient (CLI) | payer MEDICARE | LOC: M PAIN 08:30 | DX: G89.29 Other chronic pain (principal); M46.1 Sacroiliitis, not elsewhere classified; M53.88 Other specified dorsopathies, sacral and sacrococcygeal region; F17.200 Nicotine dependence, unspecified, uncomplicated; Z79.899 Other long term (current) drug therapy; Z88.5 Allergy status to narcotic agent; Z91.038 Other insect allergy status; Z86.69 Personal history of other diseases of the nervous system and sense organs | CPT/HCPCS: J3301 ==

== ENCOUNTER → 2017-11-16 | Outpatient (CLI) | payer MEDICARE | LOC: M PAIN 14:15 | DX: M53.3 Sacrococcygeal disorders, not elsewhere classified (principal); M48.061 Spinal stenosis, lumbar region without neurogenic claudication; M43.07 Spondylolysis, lumbosacral region; F17.200 Nicotine dependence, unspecified, uncomplicated; Z79.899 Other long term (current) drug therapy; Z88.5 Allergy status to narcotic agent; Z91.038 Other insect allergy status; Z86.69 Personal history of other diseases of the nervous system and sense organs | CPT/HCPCS: G0463 ==

== ENCOUNTER → 2018-02-01 | Outpatient (CLI) | payer MEDICARE | LOC: M PAIN 10:45 | DX: M53.3 Sacrococcygeal disorders, not elsewhere classified (principal); M48.061 Spinal stenosis, lumbar region without neurogenic claudication; M43.07 Spondylolysis, lumbosacral region; G89.29 Other chronic pain; G43.909 Migraine, unspecified, not intractable, without status migrainosus; J44.9 Chronic obstructive pulmonary disease, unspecified; Z72.0 Tobacco use; Z79.899 Other long term (current) drug therapy; Z88.5 Allergy status to narcotic agent; Z91.038 Other insect allergy status; Z86.69 Personal history of other diseases of the nervous system and sense organs | CPT/HCPCS: G0463 ==

== ENCOUNTER → 2018-05-14 | Outpatient (CLI) | payer MEDICARE ==
[~2018-05-14] MED LIST changes: +ALEV220T26 PO; +AMIT25TA PO; -BUPIVACAINE HCL 0.25% 30 ML VIAL As Ordered; +BUPR1TAB52 PO; +BUPR300T34 PO; +CAPS0.1C2 TOP; +CODE30TA3 PO; +CYCL10TA PO; +EMLA2.5C TOP; +GABA-843 PO; +GABA600T4 PO; +GASTROGRAFIN SOLUTION 30ML (Q9963) As Ordered ONE; +IBUP80TA PO; +ISOVUE-370 76% 100ML VIAL (Q9967) As Ordered ONE; -ISOVUE-M 300 61% 15ML VIAL (Q9967) As Ordered; +LEVO75TA4 PO; -LIDOCAINE 1% SDV INJ 30 ML VIAL As Ordered; +LIPI10TA PO; +MECL-68 PO; +MIRT30TA3 PO; +MOBI4TAB PO; +NAPR-50 PO; +PRAM1TAB7 PO; -TRIAMCINOLONE ACETONIDE SUSP 40 MG/ML VIAL (J3301) As Ordered; +VENL37.598 PO; +VITA100072 PO; +WELLTAB40 PO; -diazePAM 5 MG TAB As Ordered; +flexeril; -oxyCODONE 5MG TAB As Ordered
[2018-05-14 17:22] LABS: BLOOD UREA NITROGEN 17 MG/DL (7-18); CREATININE FOR GFR 0.87 MG/DL (0.55-1.30); GLOMERULAR FILTRATION RATE > 60.0 (>45)
--- NOTE | 2018-05-14 20:46 | REP ---
CT CHEST WITH CONTRAST: 05/14/2018. 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 I do not have any details or prior pertinent studies. Comparison: X-ray 06/30/2016. Technique. The patient received bolus 100 ml Isovue 370 scanning through the chest with coronal and sagittal reconstructions. Findings: The lung morgan are well inflated. There are ill-defined patchy and nodular infiltrates in the periphery of the right mid upper lung zone and curvilinear atelectatic change suggested anteriorly in the right upper lung zone. The right middle and lower lobes were unremarkable. The left lung appeared clear. There is no pleural effusion, pleural thickening, apical scarring or pneumothorax. Some minor fiber atelectatic change mid axillary line left lateral base. The heart is not enlarged. There is no pericardial thickening or effusion. Aorta without aneurysm or dissection. There are some coronary calcifications. The main, right and left pulmonary arteries and the mediastinum are without filling defects. No pathologic sized mediastinal, hilar, axillary or supraclavicular mass/adenopathy. Subcentimeter lymph nodes are noted in both axilla largest of these is 8 mm in short axis. The tracheal airway and mainstem bronchi are without filling defects or mass. No bronchiectatic change. Bone windows show the sternum, manubrium, medial clavicles, scapulae, portions of humeral heads, ribs and spine without fracture, destructive lesion are marginal osteophytes in the spine. The abdominal structures would be described in the CT abdomen pelvis to accompany this report. No hiatal hernia. Impression: 1. Ill-defined nodular infiltrate is periphery of the right mid upper lung zone and a curvilinear fib or atelectatic change in the anterior aspect of the right upper lobe. No other acute lung finding, mass, pleural thickening, calcified pleural plaque or effusion. 2. No pathologic mediastinal or hilar adenopathy. 3. Heart not enlarged. Aorta is grossly intact. No aneurysm. Electronically Signed by Dylan Gaming MD 05/14/2018 08:54 P
--- NOTE | 2018-05-14 21:03 | REP ---
CT ABDOMEN PELVIS WITH CONTRAST: 05/14/2018. Clinical history: Neoplasm uncertain behavior trachea, bronchus and lungs. No further details our prior studies available. The patient had chest CT this date. Technique: Oral Gastrografin mixture per protocol with scanning through the abdomen followed by bolus of 100 ml Isovue 370 scanning through the abdomen pelvis with coronal and sagittal reconstructions then provided. CT abdomen: I see no hiatal hernia. Stomach without mass partially distended with retained food and fluid. The liver is not enlarged. There is no hepatic mass, intrahepatic biliary dilatation, fatty liver change or adjacent ascites. There is no splenomegaly or focal splenic lesion. A small splenule adjacent to the inferior tip of the spleen is seen about 11 mm. Gallbladder is without calcified stone or mass. Pancreas shows no mass, ductal dilatation or adjacent inflammatory change. Adrenal glands were normal without nodule or mass. Kidneys show no stone, hydronephrosis, mass or cyst. No perinephric fluid. The aorta has atherosclerotic calcifications without aneurysm or dissection. No periaortic or retroperitoneal pathologic sized lymphadenopathy. Small bowel loops contrast or fluid-filled without air-fluid levels to suggest obstruction. Mild prominence of some of the left upper quadrant proximal jejunal loops without visible mass. No mesenteric or retroperitoneal lymphadenopathy suggested. I do not see a ventral bowel herniation in the abdomen. Abdominal course of the colon shows moderate stool without colitis or diverticulitis and no stricture or mass. Bones show some facet arthropathy and few millimeters of anterolisthesis of L4 and L5 due to that. Marginal osteophytes throughout the lumbar and lower thoracic spine. No compression deformities. The visualized ribs were intact. CT pelvis: The bony sacrum, pelvis, hips, acetabuli and SI joints show degenerative changes of both hips with hip joint space narrowing and rim osteophytes as well as some sclerosis at the SI joints. No fractures or destructive lesions. Uterus anteverted, not enlarged. Bladder partially filled. No distal ureteral or bladder stone. No bladder wall thickening or mass. Small bowel loops in the pelvis were unremarkable. Distal left colon, sigmoid and rectum unremarkable. No ventral or inguinal hernia nor pathologic sized inguinal adenopathy. No vent no pelvic adenopathy or mass. Impression: 1. No abdominal, pelvic or inguinal adenopathy. I see no ventral or inguinal hernia. 2. Liver, spleen, adrenal glands, pancreas and kidneys are unremarkable. 3. Gallbladder shows no calcified stone or mass. No renal or ureteral stone. 4. Small bowel loops without wall thickening or signs of obstruction. Colon intact. No inflammatory changes about the colon or small bowel. No ascites, adenopathy or free air. 5. Bones with some degenerative changes spine and hips but no destructive lesion or fracture. Electronically Signed by Dylan Gaming MD 05/15/2018 08:46 A
== END ==
LOC: M RAD 16:19 → M LAB 16:19 → MERGE 18:00
PROVIDERS: ATTEND Psychiatry & Neurology Neurology
DX: D38.1 Neoplasm of uncertain behavior of trachea, bronchus and lung (principal); R91.8 Other nonspecific abnormal finding of lung field; M16.0 Bilateral primary osteoarthritis of hip
CPT/HCPCS: 36415; 71260; 74178; 82565; 84520; Q9963; Q9967

== ENCOUNTER → 2019-06-23 | Outpatient (CLI) | payer MEDICARE ==
[~2019-06-23] MED LIST changes: +ACET300T47 PO; -BUPR300T34 PO; +BUPR300T92 PO; -CODE30TA3 PO; -GASTROGRAFIN SOLUTION 30ML (Q9963) As Ordered ONE; -ISOVUE-370 76% 100ML VIAL (Q9967) As Ordered ONE; -MECL-68 PO; +MECL1TAB31 PO; -NAPR-50 PO; +NAPR-837 PO; +VITA100018 PO; -VITA100072 PO
--- NOTE | 2019-06-23 15:38 | REP ---
Left hip two views: There are no comparisons. There is mild joint space narrowing and there is small osteophytic growth compatible with early osteoarthritis. There is no femoral head deformity. There is no fracture or dislocation. Mineralization is normal. There are no calcifications or foreign bodies. Impression: Osteoarthritis as described. If symptoms persist or worsen, consider MRI. Electronically Signed by Jamal Polo MD 06/23/2019 03:30 P
== END ==
LOC: M RAD 14:17
PROVIDERS: ATTEND Physician Assistant Medical
DX: M16.11 Unilateral primary osteoarthritis, right hip (principal)

== ENCOUNTER → 2020-02-04 | Outpatient (CLI) | payer MEDICARE ==
[~2020-02-04] MED LIST changes: +CYCL-707 PO; -CYCL10TA PO
--- NOTE | 2020-02-04 13:02 | REPMRS ---
Patient History The patient states she has not had a clinical breast exam in over a year. Patient is postmenopausal. No known family history of cancer. No Hormone Replacement Therapy 3D TOMOSYNTHESIS WAS PERFORMED. [facility]%. JUS Barger. Digital Woman Screen Mammo: February 04, 2020 - Exam #: [id number] Bilateral CC and MLO view(s) were taken. Technologist: Betty Tee, Technologist Prior study comparison: February 03, 2016, bilateral digital mammo screening bilat, performed at [facility]. FINDINGS: There are scattered fibroglandular densities. There has been no change in the appearance of the mammogram from the prior studies. There is a mild amount of residual fibroglandular tissue which is fairly symmetric. There is no interval development of dominant mass, architectural distortion, or clustered microcalcification suggestive of malignancy. Assessment: BI-RADS/ACR category 1 mammogram. Negative Mammogram. Recommendation Routine screening mammogram in 1 year (for women over age 40). This mammogram was interpreted with the aid of an FDA-approved computer-aided dectection system. Electronically Signed By: Jamal Brody MD 02/04/20 [id number]
--- NOTE | 2020-02-09 09:40 | DEXA ---
AP SPINE L1 - L4 1.460 2.1 3.6 LT FEMUR TOTAL 1.125 0.9 2.0 LT NECK 1.013 -0.2 1.2 RT FEMUR TOTAL 1.121 0.9 2.0 RT NECK 1.020 -0.1 1.2 TOTAL BODY TOTAL OTHER COMMENTS: Normal bone densitometry of the spine and hips The density of the spine has increased 7.2% since 07/19/2015. The density of the left hip has increased 3.2% since 07/19/2015. The density of the right hip has increased 2.3% since 07/19/2015. FOLLOW-UP: Recommendation for the next bone density exam:. 5 years. JAYNA
== END ==
LOC: M WHC 10:38
PROVIDERS: ATTEND Nurse Practitioner Adult Health
DX: Z12.31 Encounter for screening mammogram for malignant neoplasm of breast (principal); Z13.820 Encounter for screening for osteoporosis; Z78.0 Asymptomatic menopausal state

== ENCOUNTER 2021-01-06 15:31 | Emergency (ER) | payer MEDICARE ==
[~2021-01-06] VITALS: Ht 165.1 cm; Wt 110.9 kg
[~2021-01-06 15:31] MED LIST changes: -AMIT25TA PO; +AMIT25TA17 PO; +GABA-282 PO; -GABA-843 PO
[2021-01-06] MEDS ORDERED: GABA800T4 (15:42)
[2021-01-06 21:45] LABS: BASO % 0.7 % (0.0-1.0); EOS # 0.3 10^3/uL (0.0-0.5); EOS % 5.5 % (0.0-3.0); HEMATOCRIT 49.6 % (36.0-47.0); HEMOGLOBIN 15.7 g/dl (12.0-15.5); LYMPH # 1.7 10^3/uL (1.5-5.0); LYMPH % 30.3 % (24.0-44.0); MEAN CORPUSCULAR HEMOGLOBIN 29.9 pg (27.0-33.0); MEAN CORPUSCULAR HGB CONC 31.7 g/dl (32.0-36.5); MEAN CORPUSCULAR VOLUME 94.5 fl (80.0-96.0); MONO # 0.5 10^3/uL (0.0-0.8); MONO % 9.6 % (2.0-8.0); NEUTROPHILS % 53.5 % (36.0-66.0); PLATELET COUNT, AUTOMATED 283 10^3/uL (150-450); RED BLOOD COUNT 5.25 10^6/uL (4.00-5.40); WHITE BLOOD COUNT 5.6 10^3/uL (4.0-10.0)
[2021-01-06 22:03] LABS: ERYTHROCYTE SEDIMENTATION RATE 2 mm/hr (0-30)
[2021-01-06 22:07] LABS: ALBUMIN 3.4 GM/DL (3.2-5.2); BILIRUBIN,DIRECT 0.1 MG/DL (0.0-0.2); BILIRUBIN,TOTAL 0.4 MG/DL (0.2-1.0); C REACTIVE PROTEIN QUANTITATIV 0.3 MG/DL (0.00-0.30); CALCIUM LEVEL 8.6 MG/DL (8.8-10.2); CREATININE FOR GFR 1.11 MG/DL (0.55-1.30); GLOMERULAR FILTRATION RATE 52.8 (>45); TOTAL PROTEIN 6.5 GM/DL (6.4-8.2)
--- NOTE | 2021-01-06 22:10 | REPVR ---
PROCEDURE INFORMATION: Exam: US Duplex Right Lower Extremity Veins, Limited Exam date and time: 01/06/2021 9:34 PM Age: 65 years old Clinical indication: Pain; Leg, lower; Right; Additional info: R/O dvt TECHNIQUE: Imaging protocol: Real-time Duplex ultrasound of the Right Lower Extremity with 2-D dykes scale, color Doppler flow and spectral waveform analysis with image documentation. Limited exam was focused on the right lower extremity veins. COMPARISON: CR Knee, complete RIGHT 01/06/2021 9:05 PM FINDINGS: Right deep veins: Unremarkable. The common femoral, femoral, proximal profunda femoral and popliteal veins are patent without thrombus. Normal Doppler waveforms. Normal compressibility and/or augmentation response. Right superficial veins: Unremarkable. Saphenofemoral junction is patent without thrombus. Soft tissues: Soft tissue swelling. IMPRESSION: No evidence of deep vein thrombosis. Electronically signed by: Modesto Salazar On 01/06/2021 22:10:08 PM
--- NOTE | 2021-01-06 22:14 | REPVR ---
PROCEDURE INFORMATION: Exam: XR Right Knee Exam date and time: 01/06/2021 9:15 PM Age: 65 years old Clinical indication: Other: Pain/swelling TECHNIQUE: Imaging protocol: XR Right knee. Views: 4 or more views. COMPARISON: No relevant prior studies available. FINDINGS: Bones/joints: There is a large osteophyte along the superior aspect of the patella. There is also osteophyte formation along the margins of the patella and femoral condyles/anterior compartment. There is moderate osteophyte formation medial and lateral compartments. Soft tissues: There is severe soft tissue swelling with suprapatellar joint effusion. IMPRESSION: 1. Soft tissue swelling with suprapatellar joint effusion. 2. Prominent osteophyte formation arthritic changes especially anterior compartment. Electronically signed by: Modesto Salazar On 01/06/2021 22:14:03 PM
[2021-01-06 23:02] VITALS: BP 142/91
[2021-01-06] MEDS ORDERED: NAPR-837 PO (23:06)
== END 2021-01-06 23:12 | disposition home or self-care (01) ==
LOC: M ED 15:31
DX: M25.461 Effusion, right knee (principal); M17.11 Unilateral primary osteoarthritis, right knee; E03.9 Hypothyroidism, unspecified; F17.200 Nicotine dependence, unspecified, uncomplicated; J44.9 Chronic obstructive pulmonary disease, unspecified; Z78.0 Asymptomatic menopausal state; Z88.6 Allergy status to analgesic agent; Z88.1 Allergy status to other antibiotic agents; Z91.048 Other nonmedicinal substance allergy status

== ENCOUNTER → 2021-01-17 | Outpatient (CLI) | payer MEDICARE ==
[~2021-01-17] MED LIST changes: +GABA800T4
--- NOTE | 2021-01-17 16:15 | REP ---
INDICATION: RT KNEE PAIN. COMPARISON: Right knee of 01/06/2021 TECHNIQUE: Standing bilateral AP view of the knees FINDINGS: There is bilateral bicompartmental marginal osteophytosis. There is moderate to severe right knee medial compartmental narrowing. There is mild subchondral sclerosis. There is mild to moderate left knee medial compartmental narrowing. IMPRESSION: Chronic changes as described above. <Electronically signed by Buddy Leslie > 01/17/21 1448
== END ==
LOC: M SOG 14:59
PROVIDERS: ATTEND Orthopaedic Surgery Adult Reconstructive Orthopaedic Surgery
DX: M25.561 Pain in right knee (principal)

== ENCOUNTER → 2021-10-24 | Outpatient (CLI) | payer MEDICARE | LOC: M SOG 13:34 | PROVIDERS: ATTEND Orthopaedic Surgery | DX: Z47.89 Encounter for other orthopedic aftercare (principal) ==

== ENCOUNTER 2021-11-23 12:40 | Outpatient (RCR) | payer MEDICARE | END 2021-11-27 | LOC: M PT 12:40 | PROVIDERS: ATTEND Orthopaedic Surgery | DX: M75.41 Impingement syndrome of right shoulder (principal) ==

== ENCOUNTER 2021-12-01 14:58 | Outpatient (RCR) | payer MEDICARE | END 2021-12-28 | LOC: M PT 14:58 | PROVIDERS: ATTEND Orthopaedic Surgery | DX: M75.41 Impingement syndrome of right shoulder (principal) ==

== ENCOUNTER → 2022-11-02 | Outpatient (CLI) | payer MEDICARE | LOC: M SOG 13:10 | PROVIDERS: ATTEND Orthopaedic Surgery | DX: M17.0 Bilateral primary osteoarthritis of knee (principal) ==

== ENCOUNTER → 2023-05-07 | Outpatient (CLI) | payer MEDICARE ==
[~2023-05-07] MED LIST changes: -AMIT25TA17 PO; +AMIT25TA19 PO; +MECL-209 PO; -MECL1TAB31 PO
== END ==
LOC: M SOG 08:13
PROVIDERS: ATTEND Orthopaedic Surgery
DX: M17.0 Bilateral primary osteoarthritis of knee (principal)

== ENCOUNTER → 2023-05-08 | Outpatient (CLI) | payer MEDICARE ==
[2023-05-08 17:28] LABS: BASO % 0.4 % (0.0-1.0); EOS # 0.3 10^3/uL (0.0-0.5); EOS % 3.7 % (0.0-3.0); HEMATOCRIT 44.3 % (36.0-47.0); HEMOGLOBIN 13.9 g/dl (12.0-15.5); LYMPH # 1.6 10^3/uL (1.5-5.0); LYMPH % 23.7 % (24.0-44.0); MEAN CORPUSCULAR HEMOGLOBIN 28.8 pg (27.0-33.0); MEAN CORPUSCULAR HGB CONC 31.4 g/dl (32.0-36.5); MEAN CORPUSCULAR VOLUME 91.9 fl (80.0-96.0); MONO # 0.6 10^3/uL (0.0-0.8); MONO % 8.7 % (2.0-8.0); NEUTROPHILS # 4.2 10^3/uL (1.5-8.5); NEUTROPHILS % 63.4 % (36.0-66.0); PLATELET COUNT, AUTOMATED 350 10^3/uL (150-450); RED BLOOD COUNT 4.82 10^6/uL (4.00-5.40); WHITE BLOOD COUNT 6.7 10^3/uL (4.0-10.0)
[2023-05-08 17:51] LABS: ALKALINE PHOSPHATASE 48 U/L (46-116); ALT/SGPT 18 U/L (7.0-40); AST/SGOT 22 U/L (<34); BILIRUBIN,TOTAL 0.4 MG/DL (0.3-1.2); BLOOD UREA NITROGEN 16 MG/DL (9-23); CALCIUM LEVEL 8.5 MG/DL (8.3-10.6); CARBON DIOXIDE LEVEL 30 MMOL/L (20-31); CHLORIDE LEVEL 109 MMOL/L (98-107); CREATININE FOR GFR 0.86 MG/DL (0.55-1.30); GLOMERULAR FILTRATION RATE > 60.0 (>45); GLUCOSE, FASTING 72 MG/DL (74-106); POTASSIUM SERUM 4.3 MMOL/L (3.5-5.1); SODIUM LEVEL 143 MMOL/L (136-145); TOTAL PROTEIN 5.8 G/DL (5.7-8.2)
[2023-05-08 17:53] LABS: TOTAL 25(OH) VITAMIN D 15.9 NG/ML (20.0-100.0)
[2023-05-08 18:15] LABS: HEMOGLOBIN A1c 4.9 % (4.0-6.0)
== END ==
LOC: M LAB 15:46
PROVIDERS: ATTEND Orthopaedic Surgery
DX: M17.0 Bilateral primary osteoarthritis of knee (principal); Z79.899 Other long term (current) drug therapy

== ENCOUNTER → 2023-06-21 | Outpatient (CLI) | payer MEDICARE | LOC: M SOG 15:53 | PROVIDERS: ATTEND Orthopaedic Surgery | DX: M17.0 Bilateral primary osteoarthritis of knee (principal); M85.88 Other specified disorders of bone density and structure, other site ==

== ENCOUNTER → 2023-08-07 | Outpatient (CLI) | payer MEDICARE ==
[~2023-08-07] MED LIST changes: +ISOVUE-370 76% 100ML VIAL ONE
== END ==
LOC: M PLAIMG 12:39
PROVIDERS: ATTEND Registered Nurse
DX: R63.4 Abnormal weight loss (principal)
CPT/HCPCS: 71260; 74177; Q9967

== ENCOUNTER → 2023-09-07 | Outpatient (CLI) | payer MEDICARE ==
[~2023-09-07] MED LIST changes: +BUPR-597 PO; -BUPR300T92 PO; -ISOVUE-370 76% 100ML VIAL ONE
== END ==
LOC: M RAD 10:41
PROVIDERS: ATTEND Registered Nurse
DX: R93.5 Abnormal findings on diagnostic imaging of other abdominal regions, including retroperitoneum (principal); E07.89 Other specified disorders of thyroid

== ENCOUNTER → 2024-02-28 | Outpatient (CLI) | payer MEDICARE ==
[~2024-02-28] MED LIST changes: +GABA-1172 PO; +GABA-1490 PO; +GABA-1635; -GABA-282 PO; -GABA600T4 PO; -GABA800T4
[2024-02-28 13:20] LABS: BASO % 0.7 % (0.0-1.0); EOS # 0.5 10^3/uL (0.0-0.5); EOS % 8.3 % (0.0-3.0); HEMATOCRIT 46.3 % (36.0-47.0); HEMOGLOBIN 14.5 g/dl (12.0-15.5); LYMPH # 1.7 10^3/uL (1.5-5.0); LYMPH % 28.2 % (24.0-44.0); MEAN CORPUSCULAR HEMOGLOBIN 28.9 pg (27.0-33.0); MEAN CORPUSCULAR HGB CONC 31.3 g/dl (32.0-36.5); MEAN CORPUSCULAR VOLUME 92.2 fl (80.0-96.0); MONO # 0.5 10^3/uL (0.0-0.8); MONO % 7.5 % (2.0-8.0); NEUTROPHILS # 3.4 10^3/uL (1.5-8.5); NEUTROPHILS % 55.1 % (36.0-66.0); PLATELET COUNT, AUTOMATED 318 10^3/uL (150-450); RED BLOOD COUNT 5.02 10^6/uL (4.00-5.40); WHITE BLOOD COUNT 6.1 10^3/uL (4.0-10.0)
[2024-02-28 13:23] LABS: VALPROIC ACID (DEPAKOTE) 36.7 UG/ML (50.0-100.0)
[2024-02-28 13:25] LABS: ALBUMIN 2.9 G/DL (3.2-5.2); ALKALINE PHOSPHATASE 88 U/L (35-104); ALT/SGPT < 9 U/L (7.0-40); AST/SGOT 9 U/L (<34); BILIRUBIN,TOTAL 0.2 MG/DL (0.3-1.2); BLOOD UREA NITROGEN 16 MG/DL (9-23); CALCIUM LEVEL 8.6 MG/DL (8.3-10.6); CARBON DIOXIDE LEVEL 30 MMOL/L (20-31); CHLORIDE LEVEL 109 MMOL/L (98-107); GLOMERULAR FILTRATION RATE > 60.0 (>45); GLUCOSE, FASTING 89 MG/DL (74-106); POTASSIUM SERUM 3.9 MMOL/L (3.5-5.1); SODIUM LEVEL 142 MMOL/L (136-145)
[2024-02-28 13:26] LABS: FOLATE 3.49 NG/ML (>5.4)
[2024-02-28 13:27] LABS: VITAMIN B12 LEVEL 1465 PG/ML (211-911)
== END ==
LOC: M PLALAB 10:39
PROVIDERS: ATTEND Psychiatry & Neurology Neurology
DX: E53.8 Deficiency of other specified B group vitamins (principal); R51.9 Headache, unspecified; R25.1 Tremor, unspecified

== ENCOUNTER → 2024-04-28 | Outpatient (CLI) | payer MEDICARE ==
[2024-04-28 13:09] LABS: BASO # 0.1 10^3/uL (0.0-0.2); BASO % 0.7 % (0.0-1.0); EOS # 0.4 10^3/uL (0.0-0.5); HEMATOCRIT 51.9 % (36.0-47.0); HEMOGLOBIN 16.8 g/dl (12.0-15.5); LYMPH # 2.7 10^3/uL (1.5-5.0); LYMPH % 39.4 % (24.0-44.0); MEAN CORPUSCULAR HEMOGLOBIN 29.5 pg (27.0-33.0); MEAN CORPUSCULAR HGB CONC 32.4 g/dl (32.0-36.5); MEAN CORPUSCULAR VOLUME 91.1 fl (80.0-96.0); MONO # 0.6 10^3/uL (0.0-0.8); MONO % 8.3 % (2.0-8.0); NEUTROPHILS # 3.1 10^3/uL (1.5-8.5); NEUTROPHILS % 45.5 % (36.0-66.0); PLATELET COUNT, AUTOMATED 352 10^3/uL (150-450); WHITE BLOOD COUNT 6.9 10^3/uL (4.0-10.0)
[2024-04-28 13:39] LABS: HEMOGLOBIN A1c 4.9 % (4.0-6.0)
[2024-04-28 13:45] LABS: ALBUMIN 3.4 G/DL (3.2-5.2); ALKALINE PHOSPHATASE 87 U/L (35-104); ALT/SGPT 25 U/L (7.0-40); AST/SGOT 20 U/L (<34); BILIRUBIN,TOTAL 0.2 MG/DL (0.3-1.2); BLOOD UREA NITROGEN 25 MG/DL (9-23); CALCIUM LEVEL 9.6 MG/DL (8.3-10.6); CARBON DIOXIDE LEVEL 29 MMOL/L (20-31); CHLORIDE LEVEL 106 MMOL/L (98-107); CHOLESTEROL LEVEL 280 MG/DL (<200); CHOLESTEROL RISK RATIO 5.77 (<5); CREATININE FOR GFR 0.81 MG/DL (0.55-1.30); FREE T4 1.15 NG/DL (0.89-1.76); GLOMERULAR FILTRATION RATE > 60.0 (>45); GLUCOSE, FASTING 96 MG/DL (74-106); HDL CHOLESTEROL 48.5 MG/DL (>40); LDL CHOLESTEROL 191.9 MG/DL (<100); NON-HDL-C 231.5 MG/DL; POTASSIUM SERUM 4.5 MMOL/L (3.5-5.1); SODIUM LEVEL 143 MMOL/L (136-145); THYROID STIMULATING HORMONE 3.935 uIU/ML (0.55-4.78); TOTAL PROTEIN 6.8 G/DL (5.7-8.2); TRIGLYCERIDES LEVEL 198 MG/DL (<150)
== END ==
LOC: M PLALAB 10:16
PROVIDERS: ATTEND Nurse Practitioner Family
DX: E03.9 Hypothyroidism, unspecified (principal); E78.2 Mixed hyperlipidemia; Z13.1 Encounter for screening for diabetes mellitus; E55.9 Vitamin D deficiency, unspecified
CPT/HCPCS: 36415; 80053; 80061; 82652; 83036; 84439; 84443; 85025; G0463

== ENCOUNTER → 2024-05-06 | Outpatient (CLI) | payer MEDICARE | LOC: M WHC 08:26 | PROVIDERS: ATTEND Nurse Practitioner Family | DX: Z12.31 Encounter for screening mammogram for malignant neoplasm of breast (principal); Z13.820 Encounter for screening for osteoporosis; M81.0 Age-related osteoporosis without current pathological fracture ==

== ENCOUNTER 2024-06-23 17:15 | Emergency (ER) | payer MEDICARE ==
[~2024-06-23] VITALS: Ht 162.6 cm; Wt 65.9 kg
[2024-06-23 19:02] VITALS: TEMP 95.8
[2024-06-23] MEDS ORDERED: ACETAMINOPHEN 500 MG TAB PO ONE (19:05)
[2024-06-23] MEDS: NAPROXEN 250 MG TAB PO ONE (19:25)
[2024-06-23 21:31] VITALS: O2SAT 96
[2024-06-23 22:00] VITALS: BP 133/66
== END 2024-06-23 22:36 | disposition home or self-care (01) ==
LOC: M ED 17:15
DX: M25.552 Pain in left hip (principal); M25.551 Pain in right hip; M25.562 Pain in left knee; M25.561 Pain in right knee; W54.8XXA Other contact with dog, initial encounter; M16.0 Bilateral primary osteoarthritis of hip; F41.9 Anxiety disorder, unspecified; F32.A Depression, unspecified; E03.9 Hypothyroidism, unspecified; H81.4 Vertigo of central origin; Y92.009 Unspecified place in unspecified non-institutional (private) residence as the place of occurrence of the external cause; Y93.89 Activity, other specified; Y99.9 Unspecified external cause status; Z79.02 Long term (current) use of antithrombotics/antiplatelets; Z79.899 Other long term (current) drug therapy

== ENCOUNTER → 2024-09-04 | Outpatient (CLI) | payer MEDICARE ==
[~2024-09-04] MED LIST changes: -BUPR-597 PO; +BUPR-670 PO; +BUPR-766 PO; -BUPR1TAB52 PO
[2024-09-04 11:13] LABS: FREE T4 1.5 NG/DL (0.89-1.76)
[2024-09-04 12:10] LABS: ALBUMIN 3.2 G/DL (3.2-5.2); BILIRUBIN,TOTAL 0.2 MG/DL (0.3-1.2); CALCIUM LEVEL 8.8 MG/DL (8.3-10.6); CHOLESTEROL RISK RATIO 3.63 (<5); CREATININE FOR GFR 0.86 MG/DL (0.55-1.30); HDL CHOLESTEROL 37.1 MG/DL (>40); LDL CHOLESTEROL 79.5 MG/DL (<100); NON-HDL-C 97.9 MG/DL; POTASSIUM SERUM 4.4 MMOL/L (3.5-5.1); THYROID STIMULATING HORMONE 2.36 uIU/ML (0.55-4.78); TOTAL PROTEIN 6.3 G/DL (5.7-8.2)
[2024-09-04 12:15] LABS: FREE T3 2.9 PG/ML (2.3-4.2)
== END ==
LOC: M PLALAB 09:03
PROVIDERS: ATTEND Nurse Practitioner Family
DX: E03.9 Hypothyroidism, unspecified (principal); E78.2 Mixed hyperlipidemia

== ENCOUNTER 2024-09-11 11:06 | Emergency (ER) | payer MEDICARE ==
[2024-09-11] MEDS ORDERED: SUCR1TAB56 (11:58)
[2024-09-11] MEDS ORDERED: FAMO1TAB11 (11:58)
[2024-09-11] MEDS ORDERED: DIVA500T94 (11:58)
[2024-09-11] MEDS ORDERED: DIVA250T67 (11:58)
[2024-09-11] MEDS ORDERED: DUPI300I (11:58)
[2024-09-11 12:03] LABS: VENOUS BASE EXCESS 1.3 (-2.0-2.0); VENOUS HCO3 25.6 MMOL/L (23.0-27.0); VENOUS O2 SATURATION 92.6 % (60.0-80.0); VENOUS PARTIAL PRESSURE CO2 39.6 mmHg (38.0-50.0); VENOUS PARTIAL PRESSURE O2 58.6 mmHg (30.0-50.0); VENOUS PH 7.429 UNITS (7.330-7.430); VENOUS STANDARD HCO3 25.5 MMOL/L; VENOUS TOTAL CO2 26.9 MMOL/L (24.0-28.0)
[2024-09-11 12:15] LABS: BASO # 0.1 10^3/uL (0.0-0.2); BASO % 0.8 % (0.0-1.0); EOS # 0.3 10^3/uL (0.0-0.5); EOS % 3.4 % (0.0-3.0); HEMATOCRIT 46.5 % (36.0-47.0); HEMOGLOBIN 15.4 g/dl (12.0-15.5); LYMPH # 2.6 10^3/uL (1.5-5.0); LYMPH % 33.1 % (24.0-44.0); MEAN CORPUSCULAR HEMOGLOBIN 28.9 pg (27.0-33.0); MEAN CORPUSCULAR HGB CONC 33.1 g/dl (32.0-36.5); MEAN CORPUSCULAR VOLUME 87.4 fl (80.0-96.0); MONO # 0.8 10^3/uL (0.0-0.8); MONO % 9.5 % (2.0-8.0); NEUTROPHILS # 4.2 10^3/uL (1.5-8.5); NEUTROPHILS % 53.1 % (36.0-66.0); PLATELET COUNT, AUTOMATED 299 10^3/uL (150-450); RED BLOOD COUNT 5.32 10^6/uL (4.00-5.40); WHITE BLOOD COUNT 7.9 10^3/uL (4.0-10.0)
[2024-09-11] MEDS: methylPREDNISolone 125MG 2ML VIAL IV ONE (12:25)
[2024-09-11 12:35] LABS: ALBUMIN 3.1 G/DL (3.2-5.2); ALKALINE PHOSPHATASE 84 U/L (35-104); ALT/SGPT 12 U/L (7.0-40); AST/SGOT 12 U/L (<34); BILIRUBIN,DIRECT < 0.1 MG/DL (<0.4); BILIRUBIN,TOTAL 0.3 MG/DL (0.3-1.2); BLOOD UREA NITROGEN 19 MG/DL (9-23); CALCIUM LEVEL 9.1 MG/DL (8.3-10.6); CARBON DIOXIDE LEVEL 26 MMOL/L (20-31); CHLORIDE LEVEL 107 MMOL/L (98-107); CREATININE FOR GFR 0.73 MG/DL (0.55-1.30); GLOMERULAR FILTRATION RATE > 90.0 (>45); GLUCOSE, FASTING 94 MG/DL (74-106); POTASSIUM SERUM 4.1 MMOL/L (3.5-5.1); SODIUM LEVEL 140 MMOL/L (136-145); TOTAL PROTEIN 6.2 G/DL (5.7-8.2)
[2024-09-11 12:39] LABS: THYROID STIMULATING HORMONE 3.338 uIU/ML (0.55-4.78)
[2024-09-11 13:17] LABS: CK-MB VALUE MASS < 1.0 NG/ML (<3.6)
[2024-09-11 13:28] LABS: CPK CREATINE PHOSPHOKINASE 67 U/L (34-145); MB/CK RELATIVE INDEX 1.49 (< OR =4)
[2024-09-11] MEDS: NAPROXEN 250 MG TAB PO ONE (14:43)
[2024-09-11 14:55] LABS: CK-MB VALUE MASS < 1.0 NG/ML (<3.6)
[2024-09-11 15:00] LABS: CK-MB VALUE MASS < 1.0 NG/ML (<3.6); CPK CREATINE PHOSPHOKINASE 120 U/L (34-145); MB/CK RELATIVE INDEX 0.83 (< OR =4)
[2024-09-11 15:05] LABS: CPK CREATINE PHOSPHOKINASE 53 U/L (34-145); MB/CK RELATIVE INDEX 1.88 (< OR =4)
[2024-09-11] MEDS ORDERED: PRED10TA2 PO (15:14)
[2024-09-11 15:15] VITALS: BP 111/58; TEMP 97.8; O2SAT 94
== END 2024-09-11 15:30 | disposition home or self-care (01) ==
LOC: EDBD 11:06 → M ED 11:06
DX: J44.1 Chronic obstructive pulmonary disease with (acute) exacerbation (principal); E78.5 Hyperlipidemia, unspecified; R51.9 Headache, unspecified; H81.4 Vertigo of central origin; E03.9 Hypothyroidism, unspecified; F17.200 Nicotine dependence, unspecified, uncomplicated; Z88.5 Allergy status to narcotic agent; Z88.8 Allergy status to other drugs, medicaments and biological substances; Z79.52 Long term (current) use of systemic steroids; Z79.02 Long term (current) use of antithrombotics/antiplatelets; Z79.899 Other long term (current) drug therapy
CPT/HCPCS: 71045; 80048; 80076; 82550; 82553; 82803; 83605; 83880; 84443; 84484; 85025; 87040; 87486; 87581; 87633; 87798; 93005; 93041; 94760; 96374; 99285; J2919

== ENCOUNTER 2025-03-11 16:48 | Observation (INO) | payer MEDICARE ==
[~2025-03-11] VITALS: Ht 165.1 cm; Wt 89.0 kg
[~2025-03-11 16:48] MED LIST changes: +DIVA-41 PO; +DIVA250T67; +DUPI300I INJ; +FAMO1TAB11 PO; -GABA-1635; +GABA-1635 PO; +PRED10TA2 PO; +SUCR1TAB56 PO
[2025-03-11 17:34] LABS: BASO # 0.1 10^3/uL (0.0-0.2); BASO % 0.9 % (0.0-1.0); EOS # 0.2 10^3/uL (0.0-0.5); EOS % 4.0 % (0.0-3.0); LYMPH # 1.7 10^3/uL (1.5-5.0); LYMPH % 29.2 % (24.0-44.0); MONO # 0.4 10^3/uL (0.0-0.8); MONO % 6.3 % (2.0-8.0); NEUTROPHILS # 3.4 10^3/uL (1.5-8.5); NEUTROPHILS % 59.1 % (36.0-66.0); PLATELET COUNT, AUTOMATED 382 10^3/uL (150-450)
[2025-03-11 17:56] LABS: ALT/SGPT 13 U/L (7.0-40); AST/SGOT 19 U/L (<34); CALCIUM LEVEL 8.2 MG/DL (8.3-10.6); CARBON DIOXIDE LEVEL 26 MMOL/L (20-31); CHLORIDE LEVEL 108 MMOL/L (98-107); CREATININE FOR GFR 1.13 MG/DL (0.55-1.30); GLOMERULAR FILTRATION RATE 53.3 (>45); POTASSIUM SERUM 4.1 MMOL/L (3.5-5.1); SODIUM LEVEL 139 MMOL/L (136-145)
[2025-03-11] MEDS: NS (Normal Saline) 0.9% 1,000 ML IV ONE (18:15)
[2025-03-11] MEDS ORDERED: ISOVUE-370 76% 100 ML VIAL As Ordered ONE (18:16)
[2025-03-11 18:24] LABS: CK-MB VALUE MASS < 1.0 NG/ML (<3.6)
[2025-03-11 18:26] LABS: CPK CREATINE PHOSPHOKINASE 43 U/L (34-145)
[2025-03-11 19:20] LABS: CK-MB VALUE MASS < 1.0 NG/ML (<3.6)
[2025-03-11 19:22] LABS: CPK CREATINE PHOSPHOKINASE 42 U/L (34-145)
[2025-03-11] MEDS: ACETAMINOPHEN 325 MG TAB PO ONE (19:53)
[2025-03-11] MEDS ORDERED: ATOR40TA75 PO (20:08)
[2025-03-11] MEDS ORDERED: LEVOTAB10 PO (20:12)
[2025-03-11] MEDS ORDERED: HYDR-643 PO (20:12)
[2025-03-11] MEDS ORDERED: MONT10TA97 PO (20:12)
[2025-03-11] MEDS ORDERED: BENA25CA4 PO (20:12)
[2025-03-11] MEDS ORDERED: GABA-1172 PO (20:12)
[2025-03-11] MEDS ORDERED: BACL10TA2 PO (20:12)
[2025-03-11] MEDS ORDERED: CEPH500C PO (20:12)
[2025-03-11] MEDS ORDERED: HOME MED LIST COMPLETE! XX SCH (20:15)
[2025-03-11] MEDS ORDERED: MOM 30 ML SUSPENSION UDC PO PRN (20:35)
[2025-03-11] MEDS: DIVALPROEX 500 MG TAB PO SCH (21:00)
[2025-03-11] MEDS: FAMOTIDINE 20 MG TAB PO SCH (21:00)
[2025-03-11 21:45] VITALS: BP 121/65; TEMP 98.1; O2SAT 96
[2025-03-11] MEDS: NS (Normal Saline) 0.9% 1,000 ML IV SCH (22:52)
[2025-03-11] MEDS: CEPHALEXIN 500 MG CAP PO SCH (23:27)
[2025-03-11] MEDS: ACETAMINOPHEN 325 MG TAB PO PRN (23:28)
[2025-03-11] MEDS: GABAPENTIN 400 MG CAP PO ONE (23:31)
[2025-03-11 23:36] VITALS: BP 121/63; TEMP 97.9; O2SAT 96
[2025-03-12 03:10] VITALS: BP 126/66; TEMP 97.7; O2SAT 93
[2025-03-12 06:11] LABS: BASO # 0.1 10^3/uL (0.0-0.2); BASO % 1.1 % (0.0-1.0); EOS # 0.3 10^3/uL (0.0-0.5); EOS % 5.2 % (0.0-3.0); LYMPH # 1.7 10^3/uL (1.5-5.0); LYMPH % 33.0 % (24.0-44.0); MONO # 0.4 10^3/uL (0.0-0.8); MONO % 8.4 % (2.0-8.0); NEUTROPHILS # 2.7 10^3/uL (1.5-8.5); NEUTROPHILS % 51.9 % (36.0-66.0); PLATELET COUNT, AUTOMATED 292 10^3/uL (150-450)
[2025-03-12 06:36] LABS: ALT/SGPT 12 U/L (7.0-40); AST/SGOT 25 U/L (<34); CALCIUM LEVEL 7.5 MG/DL (8.3-10.6); CARBON DIOXIDE LEVEL 25 MMOL/L (20-31); CHLORIDE LEVEL 110 MMOL/L (98-107); CREATININE FOR GFR 0.88 MG/DL (0.55-1.30); GLOMERULAR FILTRATION RATE 72.0 (>45); POTASSIUM SERUM 4.4 MMOL/L (3.5-5.1); SODIUM LEVEL 140 MMOL/L (136-145)
[2025-03-12 08:00] VITALS: BP 125/58; TEMP 98.1; O2SAT 93
[2025-03-12] MEDS: GABAPENTIN 300 MG CAP PO SCH (08:58)
[2025-03-12] MEDS: SUCRALFATE 1 GM TAB PO SCH (08:59)
[2025-03-12] MEDS: BACLOFEN 10 MG TAB PO SCH (08:59)
[2025-03-12] MEDS: ENOXAPARIN 40 MG/0.4 ML SYRINGE (J1650 PER 10MG) SC SCH (08:59)
[2025-03-12] MEDS: MONTELUKAST 10 MG TAB PO SCH (08:59)
[2025-03-12] MEDS: ATORVASTATIN 20 MG TAB PO SCH (08:59)
[2025-03-12] MEDS: FLUZONE HIGH DOSE (65+) 0.5 ML SYRINGE (25-26) IM.IMMUN ONE (09:29)
[2025-03-12 10:48] LABS: C REACTIVE PROTEIN QUANTITATIV < 0.50 MG/DL (<1.0)
[2025-03-12 12:00] VITALS: BP 125/64; TEMP 97.6; O2SAT 93
[2025-03-12 15:49] VITALS: BP 132/63; TEMP 98.6; O2SAT 96
[2025-03-12] MEDS: NICOTINE 21 MG/24 HR 1 EA TRANSDERMAL TD SCH (18:00)
[2025-03-12 19:53] VITALS: BP 123/57; TEMP 98.2; O2SAT 95
[2025-03-12] MEDS: GABAPENTIN 400 MG CAP PO SCH (20:06)
[2025-03-12 23:40] VITALS: BP 135/60; TEMP 97.3; O2SAT 95
[2025-03-13 03:19] VITALS: BP 117/63; TEMP 97.6; O2SAT 95
[2025-03-13] MEDS: LEVOTHYROXINE 75 MCG TABLET (0.075 MG) PO SCH (05:13)
[2025-03-13 06:30] LABS: BASO # 0.1 10^3/uL (0.0-0.2); BASO % 1.2 % (0.0-1.0); EOS # 0.4 10^3/uL (0.0-0.5); EOS % 8.0 % (0.0-3.0); LYMPH # 2.1 10^3/uL (1.5-5.0); LYMPH % 41.4 % (24.0-44.0); MONO # 0.4 10^3/uL (0.0-0.8); MONO % 8.5 % (2.0-8.0); NEUTROPHILS # 2.1 10^3/uL (1.5-8.5); NEUTROPHILS % 40.7 % (36.0-66.0); PLATELET COUNT, AUTOMATED 285 10^3/uL (150-450)
[2025-03-13 06:53] LABS: CALCIUM LEVEL 7.6 MG/DL (8.3-10.6); CARBON DIOXIDE LEVEL 27.0 MMOL/L (20-31); CHLORIDE LEVEL 108.0 MMOL/L (98-107); CREATININE FOR GFR 0.91 MG/DL (0.55-1.30); GLOMERULAR FILTRATION RATE 69.2 (>45); POTASSIUM SERUM 4.2 MMOL/L (3.5-5.1); SODIUM LEVEL 137.0 MMOL/L (136-145)
[2025-03-13 07:45] VITALS: BP 126/61; TEMP 97.3; O2SAT 94
[2025-03-13] MEDS ORDERED: OXYC-517 PO (11:34)
[2025-03-13] MEDS ORDERED: NICO21PAT TD (11:34)
[2025-03-13] MEDS ORDERED: ACET32TAB PO (11:34)
[2025-03-13 11:38] VITALS: BP 121/57; TEMP 96.3; O2SAT 95
[2025-03-13] MEDS ORDERED: SANT250O8 TOP (15:12)
[2025-03-13] MEDS ORDERED: ASPI-737 PO (15:34)
[2025-03-13] MEDS: SANTYL OINT 30GM TOP SCH (16:05)
[2025-03-13 16:07] LABS: CHOLESTEROL LEVEL 96.0 MG/DL (<200); CHOLESTEROL RISK RATIO 3.58 (<5); LDL CHOLESTEROL 42.2 MG/DL (<100); NON-HDL-C 69.2 MG/DL; TRIGLYCERIDES LEVEL 135.0 MG/DL (<150)
[2025-03-13 16:36] VITALS: BP 154/82; TEMP 96.9; O2SAT 93
[2025-03-13 17:20] LABS: ESTIMATED AVERAGE GLUCOSE 111.0 MG/DL (60-110)
[2025-03-13] MEDS ORDERED: NICOTINE 21 MG/24 HR 1 EA TRANSDERMAL TD SCH (18:00)
== END 2025-03-13 17:47 | disposition home health service (06) ==
LOC: M ED 16:48 → EDBD 16:48 → M ED INP 16:49 → M PCU 21:21
PROVIDERS: ADMIT Internal Medicine Nephrology; ATTEND Internal Medicine Nephrology
DX: R55 Syncope and collapse (principal); T49.8X Poisoning by, adverse effect of and underdosing of other topical agents; L25.3 Unspecified contact dermatitis due to other chemical products; N17.9 Acute kidney failure, unspecified; M48.00 Spinal stenosis, site unspecified; E03.9 Hypothyroidism, unspecified; J44.9 Chronic obstructive pulmonary disease, unspecified; G43.909 Migraine, unspecified, not intractable, without status migrainosus; K21.9 Gastro-esophageal reflux disease without esophagitis; F17.210 Nicotine dependence, cigarettes, uncomplicated; E78.5 Hyperlipidemia, unspecified; G89.29 Other chronic pain; Z79.899 Other long term (current) drug therapy; Z79.2 Long term (current) use of antibiotics; M79.604 Pain in right leg; L97.911 Non-pressure chronic ulcer of unspecified part of right lower leg limited to breakdown of skin
CPT/HCPCS: 36415; 70450; 70496; 70498; 71045; 74177; 80048; 80053; 80061; 80076; 82550; 82553; 83036; 83690; 84484; 85025; 86140; 93005; 93041; 93306; 93926; 93971; 94760; 96361; 96372; 96374; 97116; 97161; 97165; 97530; 99285; G0378; J1650; Q9967